=== PATIENT | male | born 1975 ===

== ENCOUNTER 2023-02-02 06:51 | Day surgery (SDC) | payer BC ==
[~2023-02-02 06:51] MED LIST: Dextrose 5%-0.45% NaCl 1,000 ML IV SCH; Midazolam 1 MG/ML 2 ML SDV ONE; Sodium Chloride 0.9% 10 ML Syringe FLUSH PRN; Sodium Chloride 0.9% 10 ML Syringe FLUSH SCH; fentaNYL 100 MCG/2 ML SDV ONE
[2023-02-02] MEDS ORDERED: Midazolam 1 MG/ML 2 ML SDV IV ONE ×7 (06:52→08:34)
[2023-02-02] MEDS ORDERED: fentaNYL 100 MCG/2 ML SDV IV ONE ×4 (06:52→08:37)
== END 2023-02-02 10:25 | disposition home or self-care (01) ==
LOC: DL.ENDO 06:51
PROVIDERS: ATTEND Internal Medicine Gastroenterology
DX: K64.8 Other hemorrhoids (principal); F41.1 Generalized anxiety disorder; H91.90 Unspecified hearing loss, unspecified ear; E66.09 Other obesity due to excess calories; Z98.890 Other specified postprocedural states; Z88.0 Allergy status to penicillin; Z68.29 Body mass index [BMI] 29.0-29.9, adult
CPT/HCPCS: 45378; J2250; J3010; J7042